=== PATIENT | female | born 1990 | race Caucasian/White ===

== ENCOUNTER 2020-11-26 21:24 | Outpatient (CLI) | payer BC ==
[~2020-11-26] VITALS: Ht 167.6 cm; Wt 101.8 kg
[~2020-11-26 21:24] MED LIST: FENUGREEK610 MG; MOTRIN 600600 MG/TAB PO; PERCOCET 325 MG1 TA2 PO; PRENATAL1 TA1
--- NOTE | 2020-11-26 21:35 | NUR ---
2134 - PATIENT AMBULATORY TO OUR UNIT WITH BY HER SIDE. PATIENT IS A AT 27 WEEKS, HERE COMPLAINING OF LOWER ABDOMINAL PAIN THAT IS PRETTY CONSTANT AND WORSENS WITH MOVEMENT. DENIES CONTRACTIONS, LOF OR BLEEDING. REPORTS GFM. 2139- EFM AND TOCO ON AND TRACING. VITALS TAKEN, ASSESSMETN COMPLETED. DISCUSSED PLAN OF CARE AND PATIENT DENIES FURTHER NEEDS. CALL LIGHT WITHIN REACH.
[2020-11-26 22:16] LABS: COLLECTION METHOD CLEAN CATCH
[2020-11-26] MEDS ORDERED: PRENATAL TABLET PO (22:20)
[2020-11-26] MEDS ORDERED: ZOLOFT 25MG25 MG PO (22:20)
[2020-11-26] MEDS ORDERED: PROTONIX20 MG PO (22:21)
[2020-11-26] MEDS ORDERED: CALCIUM CARBON650 M2 (22:21)
[2020-11-26 22:23] LABS: PH 6 (5-8); URINE APPEARANCE Clear; URINE BACTERIA None Seen /hpf; URINE BILIRUBIN Negative (NEGATIVE); URINE BLOOD Negative (NEGATIVE); URINE COLOR Straw; URINE GLUCOSE Negative (NEGATIVE); URINE KETONE Negative (NEGATIVE); URINE LEUKOCYTE ESTERASE 1+ (NEGATIVE); URINE NITRATE Negative (NEGATIVE); URINE PROTEIN(semi-quant) Negative (NEGATIVE); URINE RBC 0-2 /hpf; URINE UROBILINOGEN Negative (NEGATIVE)
[2020-11-26 22:31] VITALS: BP 129/77; PULSE 87; TEMP 97.7
--- NOTE | 2020-11-26 22:50 | NUR ---
9406- PATIENT AND SPOUSE ACCOMPANIED OFF UNIT BY THIS RN TO GO HOME AND GET SOME REST. INSTRUCTIONS GIVEN AND PATIENT VERBALIZED UNDERSTANDING AND SIGNED DISCHARGE PAPERWORK.
== END 2020-11-26 22:50 | disposition home or self-care (01) ==
LOC: LDRO 21:24
PROVIDERS: Obstetrics & Gynecology
DX: O26.892 Other specified pregnancy related conditions, second trimester (principal); R10.30 Lower abdominal pain, unspecified; Z3A.27 27 weeks gestation of pregnancy

== ENCOUNTER 2020-12-31 12:56 | Inpatient (IN) | payer BC ==
[~2020-12-31] VITALS: Ht 167.6 cm; Wt 244.2 kg
[2020-12-31] VITALS (29 sets, daily range): BP systolic 129–174; BP diastolic 72–107; PULSE 75–117; TEMP 98.2–98.5
[~2020-12-31 12:56] MED LIST changes: +CALCIUM CARBON650 M2; +PRENATAL TABLET PO; +PROTONIX20 MG PO; +ZOLOFT 25MG25 MG PO
--- NOTE | 2020-12-31 13:05 | NUR ---
Presents to L&D with c/o lower abdominal cramping. Note patient ambulatory to unit, accompanied by spouse. States she was "fine all morning long, until she got to nail salon @ 0950. Reports she began feeling the cramping when she sat down in salon around 1000. Also reports decreased movement. Denies any vaginal bleeding, leaking of fluids, headache, or RUQ abdominal pain. Note BP elevated on admission. Patient reports she was in the process of going to supervisor opening and picking BP machine, as ordered by when she was in clinic yesterday.
[2020-12-31 13:29] LABS: COLLECTION METHOD CLEAN CATCH
[2020-12-31 13:35] LABS: MUCOUS Present /lpf; PH 6 (5-8); SQUAMOUS EPITHELIAL >50 /hpf; URINE APPEARANCE Cloudy; URINE BACTERIA Rare /hpf; URINE BILIRUBIN Negative (NEGATIVE); URINE BLOOD Negative (NEGATIVE); URINE COLOR Yellow; URINE GLUCOSE Negative (NEGATIVE); URINE KETONE Negative (NEGATIVE); URINE LEUKOCYTE ESTERASE 3+ (NEGATIVE); URINE NITRATE Negative (NEGATIVE); URINE PROTEIN(semi-quant) 2+ (NEGATIVE); URINE UROBILINOGEN Negative (NEGATIVE); URINE WBC 20-50 /hpf
[2020-12-31] MEDS ORDERED: FLAGYL500 MG (13:41)
--- NOTE | 2020-12-31 13:50 | NUR ---
in to discuss plan of care, likely to include transfer to [facility], and possibility of needing to be delivered early. Patient tearful, spouse at bedside. Verbalize understanding. states she will contact accepting team, and prepare for transfer. Verbal order received to administer Betamethasone 12 mg IM. Explained to patient would administer this medication in attempt to mature lungs. Verbalizes understanding.
--- NOTE | 2020-12-31 14:05 | NUR ---
Note baseline FHR trending up, now tachycardic. Minimal variability continues, and what appears to be repetetive late decelerations, however, no contractions tracing, or palpating. in-house, aware.
--- NOTE | 2020-12-31 14:20 | NUR ---
in. Discusses with patient plans have changed, and will need to proceed with emergent ceserean delivery here. Discussed non-reassuring heart tones, general anesthesia, and the need to get baby delivered for best outcome. Patient tearful, but verbalizes understanding.
[2020-12-31 14:29] LABS: MEAN CELL VOLUME 87 fl (80.0-100.0); MEAN CORPUSCULAR HEMOGLOBIN 30 pg (27.0-31.0); MEAN CORPUSCULAR HGB CONC 34 g/dl (33.0-37.0); PLATELET COUNT 161 K/mm3 (130-400); RED BLOOD COUNT 3.39 M/mm3 (4.10-5.30); REDCELL DISTRIBUTION WIDTH-CV 12.9 % (11.5-14.5)
--- NOTE | 2020-12-31 14:30 | NUR ---
Off of EFM @ this time, for transfer to OR per bed.
[2020-12-31 14:31] LABS: HEMATOCRIT 29.5 % (37.0-47.0)
[2020-12-31 14:40] LABS: ALBUMIN 3.4 gm/dL (3.5-5.0); BILIRUBIN,TOTAL 0.2 mg/dL (0.0-1.0); CALCIUM 8.6 mg/dL (8.4-10.2); CREATININE, serum 0.67 (0.52-1.25); TOTAL PROTEIN 6.7 gm/dL (6.4-8.2)
[2020-12-31 14:56] LABS: LYMPHOCYTE 12 % (20.0-51.0); MYELOCYTE 1 % (0-0); NEUTROPHILS 81 % (42.0-75.2); PLATELET ESTIMATE NORMAL (NORMAL)
[2020-12-31 14:57] LABS: HYPOCHROMIA 1+
[2020-12-31 15:05] LABS: UMBILICAL ARTERY ABG PCO2 62.5 mmHg (30-65); UMBILICAL ARTERY ABG PO2 26.8 mmHg (50-75); UMBILICAL ARTERY ABG pH 7.1 (7.28-7.45)
--- NOTE | 2020-12-31 20:15 | NUR ---
2015- PT REPORTS PAIN IS MANAGEABLE AT THIS TIME. SHE WOULD LIKE TO STAY ON TOP OF IT. SCHEDULED MOTRIN AND PERCOCET PROVIDED. PERICARE WITH CLEAN PAD AND UNDERBUTT PAD PROVIDED. CLEAN GOWN PROVIDED. PT HAS TOLERATED EATING DINNER WITH NO NAUSEA. BLOOD PRESSURE ELEVATED BUT PT DENIES BLURRY VISION OR HEADACHE. SCHEDULED PROCARDIA PROVIDED AND QUESTIONS ANSWERED FROM PT. PLAN OF CARE FOR THE NIGHT DISCUSSED AND QUESTIONS ANSWERED. ENCOURAGED PT TO REST NOW AND WE WOULD TRY TO GET OUT OF BED LATER THIS NIGHT. PT AGREEABLE WITH THIS PLAN AT THIS TIME.
[2021-01-01 00:30] VITALS: BP 150/97; PULSE 85; TEMP 98.5
--- NOTE | 2021-01-01 03:10 | NUR ---
0310- PT CALLS OUT WITH UNCONTROLLED PAIN AND WOULD LIKE "IV PAIN MEDICATION." NURSE TO BEDSIDE. PT STATES SHE WOKE UP WITH HORRIBLE PAIN, THOUGH SHE APPEARS TO BE IN NO DISTRESS. SHE REQUESTS IV PAIN MEDS AND ASKS IF THAT IS OK EVEN THOUGH SHE IS SUPPOSED TO BE GETTING OUT OF BED THIS AM. NURSE REASSURES PT SHE CAN STILL GET OUT OF BED PLANNED LATER THIS AM EVEN IF SHE TAKES THE IV PAIN MEDS. DISCUSSED WITH PT THAT WE WOULD EXPECT HER TO NEED THE IV PAIN MEDS LESS THE DAY GOES ON AND WILL CONTINUE TO STAY ON TOP OF ORAL PAIN MEDS. PLAN DISCUSSED TO GIVE SCHEDULED MOTRIN AND PERCOCETS AT 0430, AND THEN GET UP AT 0500. PT IS AGREEABLE WITH THIS.
[2021-01-01 04:35] VITALS: BP 131/85; PULSE 88; TEMP 98.4
[2021-01-01 06:45] LABS: TRICYCLIC ANTIDEPRESS URINE NEGATIVE
--- NOTE | 2021-01-01 07:00 | NUR ---
Ambulates to bathroom independently. Unable to void at this time. Encouraged increased po fluid intake.
--- NOTE | 2021-01-01 07:31 | NUR ---
Sitting upright in bed eating breakfast at this time. Denies any needs.
[2021-01-01 08:51] VITALS: BP 129/81; PULSE 103; TEMP 97.7
--- NOTE | 2021-01-01 08:52 | NUR ---
here for rounds.
[2021-01-01] MEDS ORDERED: PROCARDIA XL 6060 MG PO (09:21)
[2021-01-01] MEDS ORDERED: PERCOCET 325 MG1 TA2 PO (09:21)
[2021-01-01] MEDS ORDERED: IBU800 M1 PO (09:22)
--- NOTE | 2021-01-01 09:22 | NUR ---
electrical equipment technician in to draw @ this time.
--- NOTE | 2021-01-01 09:35 | NUR ---
Attempt to spontaneously void @ this time, unsuccessful.
[2021-01-01 09:39] LABS: MEAN CELL VOLUME 89 fl (80.0-100.0); MEAN CORPUSCULAR HGB CONC 34 g/dl (33.0-37.0); MEAN PLATELET VOLUME 8.9 fl (7.4-10.4); PLATELET COUNT 182 K/mm3 (130-400); RED BLOOD COUNT 2.74 M/mm3 (4.10-5.30); REDCELL DISTRIBUTION WIDTH-CV 12.9 % (11.5-14.5)
[2021-01-01 09:41] LABS: HEMATOCRIT 24.4 % (37.0-47.0); HEMOGLOBIN 8.3 g/dl (12.5-16.0); MEAN CORPUSCULAR HEMOGLOBIN 30 pg (27.0-31.0)
--- NOTE | 2021-01-01 09:45 | NUR ---
Critical lab value WBC received from lab technology sales representative. in-house, aware. Patient ambulates 3 times around unit [place] with standby assist only. Denies any dizziness, lightheadedness. Audibly short of breath upon minimal exertion, reports, "It feels like I'm getting a workout." This reported to , as well as increasing edema BLE, now 3+ pitting.
[2021-01-01 09:47] LABS: ALBUMIN 3.2 gm/dL (3.5-5.0); ALKALINE PHOSPHATASE 96 U/L (50-136); ANION GAP 9 mmol/L (7-16); AST,SGOT 48 U/L (15-37); BILIRUBIN,TOTAL < 0.1 mg/dL (0.0-1.0); BLOOD UREA NITROGEN 9 mg/dL (7-17); CALCIUM 8.2 mg/dL (8.4-10.2); CARBON DIOXIDE 18 mmol/L (22-30); CHLORIDE 96 mmol/L (98-107); CREATININE, serum 0.76 (0.52-1.25); GLUCOSE 162 mg/dL (74-106); POTASSIUM 4.1 mmol/L (3.4-5.0); SODIUM 122 mmol/L (137-145); TOTAL PROTEIN 6.5 gm/dL (6.4-8.2)
[2021-01-01 09:54] LABS: ALANINE AMINOTRANSFERASE 25 U/L (4-34)
--- NOTE | 2021-01-01 10:01 | NUR ---
Attempt to spontaneously void after ambulating in hallways.
[2021-01-01 10:03] LABS: BAND 2 % (0-10); LYMPHOCYTE 7 % (20.0-51.0); NEUTROPHILS 89 % (42.0-75.2); PLATELET ESTIMATE NORMAL (NORMAL)
--- NOTE | 2021-01-01 10:08 | NUR ---
in. Discusses abnormal lab values to include WBC, low sodium level. Discusses fluid restriction, repeating lab values in am. Discusses anemia, plan to hold off on blood transfusion at this time. Discusses plan to keep patient overnight. Verbalizes understanding of updated plan of care.
--- NOTE | 2021-01-01 10:45 | NUR ---
Pumped breast milk collected in syringe, labeled, placed in nursery fridge. Patient reminded to ask for pumped breast milk prior to discharge. Verbalizes understanding.
[2021-01-01 13:00] VITALS: BP 129/77; PULSE 113; TEMP 97.9
--- NOTE | 2021-01-01 13:42 | NUR ---
Up to BR @ this time. Instructed to take a couple of laps in hallway to follow. Encouraged to begin emptying bladder at least once every 2 hours while awake. Verbalies understanding. Steady gait noted.
--- NOTE | 2021-01-01 13:56 | NUR ---
Ambulates in hallways, 2 trips around unit [place] independently. Tolerates well.
[2021-01-01 17:24] VITALS: BP 126/73; PULSE 117; TEMP 98.2
[2021-01-01 20:30] VITALS: BP 134/66; PULSE 109; TEMP 98.5
[2021-01-02] VITALS (9 sets, daily range): BP systolic 122–141; BP diastolic 70–83; PULSE 116–132; TEMP 98.1–99.1
[2021-01-02 06:23] LABS: MEAN CELL VOLUME 91 fl (80.0-100.0); MEAN CORPUSCULAR HGB CONC 33 g/dl (33.0-37.0); MEAN PLATELET VOLUME 8.4 fl (7.4-10.4); PLATELET COUNT 155 K/mm3 (130-400); RED BLOOD COUNT 2.15 M/mm3 (4.10-5.30); REDCELL DISTRIBUTION WIDTH-CV 13.4 % (11.5-14.5)
[2021-01-02 06:31] LABS: ALANINE AMINOTRANSFERASE 16 U/L (4-34); ALBUMIN 2.7 gm/dL (3.5-5.0); ALKALINE PHOSPHATASE 80 U/L (50-136); ANION GAP 0 mmol/L (7-16); AST,SGOT 28 U/L (15-37); BILIRUBIN,TOTAL < 0.1 mg/dL (0.0-1.0); BLOOD UREA NITROGEN 15 mg/dL (7-17); CALCIUM 8.1 mg/dL (8.4-10.2); CARBON DIOXIDE 24 mmol/L (22-30); CHLORIDE 107 mmol/L (98-107); CREATININE, serum 0.83 (0.52-1.25); GLUCOSE 85 mg/dL (74-106); SODIUM 131 mmol/L (137-145); TOTAL PROTEIN 5.6 gm/dL (6.4-8.2)
[2021-01-02 06:35] LABS: HEMATOCRIT 19.5 % (37.0-47.0); HEMOGLOBIN 6.5 g/dl (12.5-16.0); MEAN CORPUSCULAR HEMOGLOBIN 30 pg (27.0-31.0)
[2021-01-02 06:53] LABS: BAND 2 % (0-10); LYMPHOCYTE 6 % (20.0-51.0); NEUTROPHILS 89 % (42.0-75.2); PLATELET ESTIMATE NORMAL (NORMAL)
== END 2021-01-02 15:00 | disposition home or self-care (01) | DRG 787 ==
LOC: LDRO 12:56 → LDR 13:05 → OB 16:35
PROVIDERS: Obstetrics & Gynecology; Student in an Organized Health Care Education/Training Program; ADMIT Obstetrics & Gynecology
PROC: 10D00Z1 Extraction of Products of Conception, Low, Open Approach (ICD-10-PCS; principal; 2020-12-31)
DX: O11.4 Pre-existing hypertension with pre-eclampsia, complicating childbirth (principal); D62 Acute posthemorrhagic anemia; Z3A.32 32 weeks gestation of pregnancy; Z37.0 Single live birth; O99.344 Other mental disorders complicating childbirth; F41.9 Anxiety disorder, unspecified; O99.214 Obesity complicating childbirth; E66.9 Obesity, unspecified; O99.02 Anemia complicating childbirth
CPT/HCPCS: OP; J0330; J0702; J1100; J1170; J1885; J2250; J2405; J2704; J2710; J3010; J7120; P9016

== ENCOUNTER → 2021-03-09 | Outpatient (CLI) | payer BC ==
[~2021-03-09] MED LIST changes: +FLAGYL500 MG; +IBU800 M1 PO; +PROCARDIA XL 6060 MG PO
--- NOTE | 2021-03-09 15:31 | NUR ---
Pt, Say Roopa, presents for outpatient consult with 68 day old baby girl, Edwina Blas, for assistance getting Edwina to latch. Edwina was born at 32 weeks gestation on [birth year]. weight was 3#4.6oz (1490 gms). She was transfered to [facility] [place]. Discharge from [facility] was 03/04/21 and her weight was reported to be 6#12oz. Edwina has been receiving EBM by bottle with ~5oz fortified to 24 piotr. She drinks 50-70ml per feeding, x8 per day. Voids and stools are reported to be WNL. Pt is pumping ~q 4 hours, collecting ~180ml per session. Today Edwina weighs 6#13.4oz (3100 gms). Pt is advised on cross cradle hold to help Edwina keep the nipple deeper in her mouth. Latch appears correct, occassional swallows are noted. After nursing the right breast, on and off a few times, but for ~20 mintes Edwina has a gain of 16 gms. She has a gain of 12 gms from the left. LC does a suck evaluation and notes Edwina does not allow the finger to advance to a proper depth to mimic correct nipple placement. Edwina has a shallow gag reflex. Edwina is then fed approximately 50 ml EBM by bottle. POC: May offer the breast 1-2 times per day, but continue EBM by bottle x8 per day. Increase to 80ml per feeding as tolerated. continue pumping. consider offering bottle with longer nipple to increase tolerance of nipple depth. F/U: Pt advised to get Edwina weighed at the beginning of next week at Dr. Poe's office. As she feels Edwina tolerates a deeper latch, she can schedule a follow up appt with this LC. Questions invited and answered.
== END ==
LOC: LAC 14:18
DX: Z39.1 Encounter for care and examination of lactating mother (principal); Z71.89 Other specified counseling